=== PATIENT | female | born 1980 | race Caucasian/White ===

== ENCOUNTER 2021-11-22 19:47 | Emergency (ER) | payer BC | END 2021-11-23 00:27 | disposition home or self-care (01) | LOC: JP.ED 19:47 | DX: R00.2 Palpitations (principal); R00.0 Tachycardia, unspecified; R00.1 Bradycardia, unspecified; R03.0 Elevated blood-pressure reading, without diagnosis of hypertension; Z86.16 Personal history of COVID-19 | CPT/HCPCS: 36415; 80048; 83735; 84443; 84484; 85025; 93005; 93010; 99283; 99285-25 ==

== ENCOUNTER 2025-01-26 07:41 | Day surgery (SDC) | payer OTHER, BC ==
[2025-01-26] MEDS: Lactated Ringers 1,000 ML IV SCH (08:40)
[2025-01-26] MEDS ORDERED: Propofol 200 MG/20 ML SDV ONE (09:11)
[2025-01-26] MEDS ORDERED: Midazolam 1 MG/ML 2 ML SDV ONE (09:12)
[2025-01-26] MEDS ORDERED: fentaNYL 100 MCG/2 ML SDV ONE (09:12)
[2025-01-26] MEDS ORDERED: Ondansetron 4 MG/2 ML SDV ONE (09:38)
== END 2025-01-26 11:30 | disposition home or self-care (01) ==
LOC: JP.SDS 07:41
PROVIDERS: ATTEND Family Medicine
DX: Z12.11 Encounter for screening for malignant neoplasm of colon (principal); Z88.8 Allergy status to other drugs, medicaments and biological substances
CPT/HCPCS: 45378; J2250; J2405; J2704; J3010; J7120